=== PATIENT | male | born 1990 | race African-American/Black ===

== ENCOUNTER 2019-04-06 09:05 | Emergency (ER) | payer MEDICAID ==
[~2019-04-06] VITALS: Ht 185.4 cm; Wt 99.3 kg
[2019-04-06] MEDS ORDERED: IBUPROFEN600 MG ORAL (09:29)
[2019-04-06] MEDS ORDERED: AMOXICILLIN500 MG ORAL (09:29)
--- NOTE | 2019-04-06 09:32 | Emergency Room Report ---
History of Present Illness General Chief Complaint: Flu Like Symptoms Source: Patient Present Illness HPI Patient presents with reports of cough and congestion about 3 days ago Initially having some runny nose as well the cough seemed to have improved however last night patient had increased pain in his throat Pain with swallowing and coughed Some phlegm Denies any blood in the sputum Denies any chest pain or shortness of breath denies any back or flank pain patient had fever last night however improved today Allergies: Coded Allergies: No Known Allergies (Unverified , 04/06/19) Patient History Past Medical History: see triage record Reviewed Nursing Documentation: PMH: Agreed; PSxH: Agreed Nursing Documentation-PMH Past Medical History: No Stated History Review of Systems All Other Systems: negative except mentioned in HPI Physical Exam Vital Signs Date Time Temp Pulse Resp B/P (MAP) Pulse Ox O2 Delivery O2 Flow Rate FiO2 04/06/19 09:08 98.4 81 15 129/85 (100) 97 Room Air Sp02 EP Interpretation: reviewed, normal General Appearance: well appearing, no apparent distress Head: normocephalic, atraumatic Eyes: bilateral eye PERRL, bilateral eye EOMI ENT: hearing grossly normal, TMs + canals normal, uvula midline, pharyngeal erythema - However airway patent no upper airway stridor Neck: full range of motion, supple, no meningismus, no bony tend Respiratory: lungs clear, normal breath sounds, no rhonchi, no respiratory distress, no retraction, no accessory muscle use Cardiovascular #1: normal peripheral pulses, regular rate, rhythm, no edema, no gallop, no JVD, no murmur Gastrointestinal: normal bowel sounds, non tender, soft, no mass, no organomegaly, non-distended, no guarding, no hernia, no pulsatile mass, no rebound Musculoskeletal: normal inspection Neurologic: motor strength/tone normal, v belt coverer III-XII nml as tested, oriented x3 , sensory intact, responsive Psychiatric: mood/affect normal Skin: no rash Lymphatic: normal inspection, no adenopathy Medical Decision Making Diagnostic Impression: Primary Impression: pharyngitis ER Course Patient's exam and findings appear to be consistent with initial URI which has at this time now developed into pharyngitis Patient does not show signs of upper airway Obstruction there is no evidence of peritonsillar /Retropharyngeal abscess at this time and patient stable for initial conservative outpatient trial Last Vital Signs Date Time Temp Pulse Resp B/P (MAP) Pulse Ox O2 Delivery O2 Flow Rate FiO2 04/06/19 09:08 98.4 81 15 129/85 (100) 97 Room Air Status: unchanged Disposition: HOME, SELF-CARE Condition: Stable Scripts Ibuprofen* (MOTRIN*) 600 Mg Tablet 600 MG ORAL Q8H PRN for For Pain, #20 TAB 0 Refills Prov: Tricia Ashby DO 04/06/19 Amoxicillin* (AMOXIL*) 500 Mg Capsule 500 MG ORAL THREE TIMES A DAY, #21 CAP Prov: Tricia Ashby DO 04/06/19 Referrals: [facility] Patient Instructions: Pharyngitis, [id number] Additional Instructions: Patient is provided with the discharge instructions notified to follow up with primary doctor in the next 2-3 days otherwise return to the er with any worsening symptoms. Please note that this report is being documented using [employer] technology. This can lead to erroneous entry secondary to incorrect interpretation by the dictating instrument. Tricia Ashby DO Apr 06, 2019 09:32
--- NOTE | 2019-04-06 09:40 | NUR ---
ER DISCHARGE NOTE: Patient is cleared to be discharged per ERMD, pt is aox4, on room air, with stable vital signs. pt was given dc and prescription instructions, pt was able to verbalize understanding, pt is able to ambulate with steady gait. pt took all belongings.
[2019-04-06 09:56] VITALS: BP 129/85
== END 2019-04-06 09:50 | disposition home or self-care (01) ==
LOC: EMR 09:35
DX: J02.9 Acute pharyngitis, unspecified (principal)
CPT/HCPCS: 99282

== ENCOUNTER 2019-04-19 08:51 | Emergency (ER) | payer MEDICAID ==
[~2019-04-19] VITALS: Ht 185.4 cm; Wt 99.8 kg
[~2019-04-19 08:51] MED LIST: AMOXICILLIN500 MG ORAL; IBUPROFEN600 MG ORAL
--- NOTE | 2019-04-19 09:01 | NUR ---
ED Nurse Note: Pt walked in from home c/o epigastric pain x 1 week. Pt reports nausea but denies vomiting/diarrhea. Pt states that he has been taking ibuprofen for pain. Respirations even and unlabored on room air. Vitals stable as documented.
[2019-04-19 09:05] VITALS: BP 128/78
--- NOTE | 2019-04-19 09:13 | NUR ---
ED Nurse Note: blood and urine sent to lab
[2019-04-19] MEDS ORDERED: Pantoprazole Inj IV ONE (09:15)
[2019-04-19] MEDS ORDERED: Dicyclomine HCl 10mg/5ml oral soln ORAL ONE (09:15)
[2019-04-19] MEDS ORDERED: Mylanta II UD 30ml ORAL ONE (09:15)
[2019-04-19] MEDS ORDERED: Lidocaine 2% Visc 15ml soln ORAL ONE (09:15)
--- NOTE | 2019-04-19 09:15 | Emergency Room Report ---
History of Present Illness General Chief Complaint: Abdominal Pain Source: Patient Present Illness HPI Patient is a 28-year-old male denies any significant past medical history who presents to the ER complaining of epigastric burning for the past week. Patient states that he has been self-medicating with ibuprofen but does not feel better. He denies any fever or chills. He denies any chest pain or shortness of breath. He denies any vomiting, diarrhea, dysuria or hematuria. He states that sometimes he has acid reflux. He denies any prior abdominal surgeries. Allergies: Coded Allergies: No Known Allergies (Unverified , 04/06/19) Patient History Past Medical History: none Past Surgical History: none Social History: Reports: smoking Nursing Documentation-[facility] Past Medical History: No Stated History Review of Systems All Other Systems: negative except mentioned in HPI Physical Exam Vital Signs Date Time Temp Pulse Resp B/P (MAP) Pulse Ox O2 Delivery O2 Flow Rate FiO2 04/19/19 08:55 97.5 60 17 133/80 (97) 99 Room Air Sp02 EP Interpretation: reviewed, normal General Appearance: no apparent distress, alert, GCS 15, non-toxic Head: normocephalic, atraumatic Eyes: bilateral eye normal inspection, bilateral eye PERRL ENT: hearing grossly normal, normal pharynx, no angioedema, normal voice Neck: full range of motion, supple/symm/no masses Respiratory: chest non-tender, lungs clear, normal breath sounds, speaking full sentences Cardiovascular #1: regular rate, rhythm, no edema Gastrointestinal: normal bowel sounds, soft, non-distended, no guarding, no rebound, other - Epigastric tenderness Rectal: deferred Genitourinary: normal inspection, no CVA tenderness Musculoskeletal: back normal, normal range of motion, calf tenderness, gait/ station normal, non-tender Neurologic: alert, motor strength/tone normal, oriented x3, sensory intact, responsive, speech normal Psychiatric: judgement/insight normal, memory normal, mood/affect normal, no suicidal/homicidal ideation Skin: no rash Lymphatic: no adenopathy Medical Decision Making Diagnostic Impression: Primary Impression: Pancreatitis Additional Impression: Epigastric abdominal pain ER Course Patient's lipase greater than 2000. Patient given IV fluids as well as pain control. Patient will be admitted for further treatment and evaluation. Last Vital Signs Date Time Temp Pulse Resp B/P (MAP) Pulse Ox O2 Delivery O2 Flow Rate FiO2 04/19/19 08:55 97.5 60 17 133/80 (97) 99 Room Air Disposition: ADMITTED INPATIENT Condition: Stable Physician Consult: DR. Almeida Additional Instructions: Patient admitted to medical floor in guarded improved condition Alexus Savaedra M.D. Apr 19, 2019 09:15
[2019-04-19 09:23] LABS: APPEARANCE,URINE CLEAR; BILIRUBIN, URINE NEGATIVE (NEGATIVE); COLOR,URINE PALE YELLOW; GLUCOSE, URINE (UA) NEGATIVE (NEGATIVE); KETONES,URINE NEGATIVE (NEGATIVE); LEUKOCYTE ESTERASE ,URINE NEGATIVE (NEGATIVE); NITRITE,URINE NEGATIVE (NEGATIVE); PH,URINE 8 (4.5-8.0); PROTEIN,URINE NEGATIVE (NEGATIVE); UROBILINOGEN,URINE NORMAL MG/DL (0.0-1.0)
[2019-04-19 09:28] LABS: BASOPHILS % (AUTO) 0.8 % (0.0-2.0); EOSINOPHILS % (AUTO) 1.9 % (0.0-3.0); HEMATOCRIT 45.5 % (42.0-52.0); HEMOGLOBIN 15.9 G/DL (14.2-18.0); LYMPHOCYTES % (AUTO) 26.5 % (20.0-45.0); MEAN CORPUSCULAR VOLUME 86 FL (80-99); MONOCYTES % (AUTO) 7.8 % (1.0-10.0); NEUTROPHILS % (AUTO) 63.1 % (45.0-75.0); PLATELET COUNT 296 K/UL (150-450); RED CELL DISTRIBUTION WIDTH 11.2 % (11.6-14.8); WHITE BLOOD COUNT 7.6 K/UL (4.8-10.8)
[2019-04-19 09:40] LABS: ANION GAP 7 mmol/L (5-15); BLOOD UREA NITROGEN 13 mg/dL (7-18); CALCIUM 9.5 MG/DL (8.5-10.1); CARBON DIOXIDE 28 MMOL/L (21-32); CHLORIDE 104 MMOL/L (98-107); CREATININE 0.9 MG/DL (0.55-1.30); POTASSIUM 4.1 MMOL/L (3.5-5.1); SODIUM 139 MMOL/L (136-145)
[2019-04-19 09:44] LABS: ALANINE AMINOTRANSFERASE 34 U/L (12-78); ALBUMIN 3.7 G/DL (3.4-5.0); ALBUMIN/GLOBULIN RATIO 0.8 (1.0-2.7); ALKALINE PHOSPHATASE 57 U/L (46-116); ASPARTATE AMINO TRANSFERASE 21 U/L (15-37); BILIRUBIN,TOTAL 0.5 MG/DL (0.2-1.0)
--- NOTE | 2019-04-19 11:00 | NUR ---
ED Nurse Note: US @ bedside
[2019-04-19 11:11] VITALS: BP 133/75
--- NOTE | 2019-04-19 11:11 | NUR ---
ED Nurse Note: US done at bedside.
--- NOTE | 2019-04-19 11:17 | NUR ---
ED Nurse Note: pt ambulated to bathroom with steady gait.
--- NOTE | 2019-04-19 12:04 | NUR ---
ED Nurse Note: Dr. Almeida @ bedside
[2019-04-19 13:15] VITALS: BP 132/74
--- NOTE | 2019-04-19 13:15 | NUR ---
AMA: Pt refused to be admitted to the hospital. He said he will just come back if he feels worse. Pt aware of risks and benefits. ED MD spoke with pt. Pt still refused to be admitted and signed AMA form. IV and ID removed. Vitals stable. Pt ambulated with steady gait. A+Ox4. SEE AMA FORM.
--- NOTE | 2019-04-19 16:58 | Diagnostic Imaging Report ---
Indication: Abdominal pain Technique: Grayscale and duplex Doppler imaging of the abdomen performed. Comparison: None Findings: The liver is unremarkable. Doppler interrogation of the main portal vein shows patency with hepatopedal, monophasic flow. There is no biliary ductal dilatation identified. Gallbladder is unremarkable. CBD is 3.8 mm in diameter. There demonstrated part of the pancreas, aorta and IVC show no definite abnormalities. Both kidneys appear unremarkable. There is no hydronephrosis. IMPRESSION: No acute findings
== END 2019-04-19 13:15 | disposition other institution (70) ==
LOC: EMR 09:17
DX: K85.90 Acute pancreatitis without necrosis or infection, unspecified (principal); F17.200 Nicotine dependence, unspecified, uncomplicated
CPT/HCPCS: 36415; 76700; 80053; 81003; 83690; 83735; 85025; 96361; 96374; J7030; S0164; Z7502; 99284